=== PATIENT | female | born 1970 | race African-American/Black ===

== ENCOUNTER 2016-12-26 07:10 | Emergency (ER) ==
[2016-12-26 08:07] LABS: URINE MICRO REVIEW NEEDED? NO; URINE SOURCE VOIDED
[2016-12-26 08:13] LABS: BILIRUBIN URINE NEGATIVE (NEGATIVE); BLOOD URINE SMALL (NEGATIVE); COLOR YELLOW; GLUCOSE URINE NEGATIVE (NEGATIVE); LEUKOCYTES URINE NEGATIVE (NEGATIVE); NITRITE URINE NEGATIVE (NEGATIVE); PH URINE 5.5; PROTEIN URINE NEGATIVE (NEGATIVE); TURBIDITY URINE CLEAR (CLEAR); UROBILINOGEN URINE NORMAL (NORMAL)
[2016-12-26 08:15] LABS: UR EPITHELIAL CELLS <10 /HPF (<10); URINE BACTERIA NEGATIVE /HPF; URINE RBC <10 /HPF (<10); URINE WBC <10 /HPF (<10)
--- NOTE | 2016-12-26 08:23 | PROVIDER DOCUMENTATION ---
HPI-Female /OB/Breast - General Chief Complaint: UTI Symptoms Stated Complaint: poss uti sx Time Seen by Provider: 12/26/16 07:37 Source: reports: patient Allergies/Adverse Reactions: Patient Allergies Allergy/AdvReac Type Severity Reaction Status Date / Time shellfish derived Allergy ANAPHYLAXIS Verified 11/20/16 05:01 Home Medications: Home Medication List Medication Instructions Recorded Confirmed Last Taken Type Budesonide/Formoterol Inhaler 2 puff INH PRN PRN 02/18/16 11/01/16 02/18/16 History [Symbicort 160/4.5 Microgm Inhaler] Pantoprazole Sodium [Protonix] 20 mg PO DAILY 07/31/16 11/01/16 Unknown History Albuterol Sulfate [Proventil Hfa] 6.7 gm IH 4XDAY PRN PRN #1 08/01/16 11/01/16 Unknown Rx [email or web address] Hydrochlorothiazide [Microzide] 12.5 mg PO DAILY #30 capsule 08/01/16 11/01/16 Unknown Rx Pantoprazole Sodium [Protonix] 40 mg PO DAILY #30 tablet.dr 11/01/16 Unknown Rx Nitrofurantoin Monohyd/M-Cryst 100 mg PO BID #20 capsule 11/20/16 Unknown Rx [Macrobid 100 mg Capsule] Ciprofloxacin HCl [Cipro] 500 mg PO BID #14 tablet 12/26/16 Unknown Rx Tramadol [Ultram] 50 mg PO TID #30 tablet 12/26/16 Unknown Rx - History of Present Illness-Female /OB Nature of Presenting Problem: FELLING BLADER FULL ASSOC W/DYSURIA .PT JUST FINISH I WEEK PO CLINDAMYCIN ...NO OTHER RELATED SXS Does patient report she is ?: No Location of complaint: reports: suprapubic Radiation: reports: suprapubic Quality of Pain: reports: cramping, pressure Severity in ED: reports: mild Onset/Duration: reports: 3 days ago Timing: reports: improving, intermittent Vaginal Symptoms: denies: abnormal bleeding, discharge, foul odor, itching, passing clots/tissue Vaginal Bleeding Amount: None Sexual intercourse history: reports: Greater Than 2 Months Ago Contraception: reports: none Associated Symptoms: reports: constipation. denies: diarrhea, loss of appetite , nausea, vomiting Similar Symptoms Previously?: Yes (PT W/HX OF IBS) Recently seen or treated by another doctor?: Yes Review of Systems - Adult - REVIEW OF SYSTEMS - ADULT Constitutional: reports: see HPI All Other Systems: Reviewed and Negative Past History - Adult - PAST MEDICAL HISTORY-ADULT Review of Records: reports: Old Records Reviewed, Nursing Assessment Review, Medications Reviewed, Social history reviewed & non-contributory. Major Childhood Illnesses: reports: denies history Cardiovascular: reports: denies history Respiratory: reports: asthma, COPD Gastrointestinal: reports: GERD, IBS Obstetrical/Gynecological: reports: denies history Genitourinary: reports: denies history Musculoskeletal: reports: denies history Neurological: reports: denies history Psychiatric: reports: anxiety Endocrine/Immune: reports: denies history Other Conditions: reports: denies history - PRIOR SURGERIES/PROCEDURES Surgical/Procedure History: reports: hysterectomy, - PRIOR HOSPITALIZATIONS Prior Hospitalizations: reports: none - IMMUNIZATION STATUS Childhood Immunizations: See Nurse Assessment Flu Vaccine: See Nurse Assessment - FAMILY HISTORY Family History: reviewed, not pertinent - SOCIAL HISTORY Smoking: less than 1 pack/day Provider spent 3-5 mins advising pt. on dangers of tobacco.: Discussed manners to quit use, and f/u contacts for add'l counseling. Alcohol Use Frequency: once a week Living Situation: family Physical Exam-General - PHYSICAL EXAM-ADULT Initial Vital Signs Reviewed: Yes - CONSTITUTIONAL General Appearance: appears well, alert, no apparent distress, obese - EYES Eyes: PERRL/EOMI, pink conjunctivae - HEAD, EARS, NOSE, MOUTH & THROAT HENMT: normocephalic/atraumatic, moist mucous membranes, normal ENT inspection, TMs normal - NECK Neck: non-tender, full range of motion, supple, normal inspection - RESPIRATORY Respiratory: chest non-tender, lungs clear, normal breath sounds, no pleuratic chest pain, no respiratory distress - CARDIOVASCULAR Cardiovascular: normal peripheral pulses, regular rate, rhythm, no edema - GASTROINTESTINAL (ABDOMEN) Abdominal Exam: normal bowel sounds, soft, no organomegaly, no pulsatile mass, tenderness (SUPRAPUBIC) - LYMPHATIC Lymphatic: no adenopathy, axilla node tender - MUSCULOSKELETAL Back Exam: normal inspection, no CVA tenderness, no vertebral tenderness Extremity: normal range of motion, non-tender, normal gait - SKIN Integumentary: normal color, normal turgor, warm/dry - NEUROLOGIC Neurologic: supervisor electrolytic tinning II-XII nml as tested, grossly normal, no motor/sensory deficits - PSYCHIATRIC Psych/Mental Status: normal mood/affect, oriented x 3 Departure - Departure Time of Disposition Order: 08:23 DIAGNOSIS: Suprapubic abdominal pain, UTI (urinary tract infection) Disposition: HOME 01 Certified Medical Emergency: Urgent Condition: Stable Prescriptions: Ciprofloxacin HCl [Cipro] 500 mg PO BID #14 tablet Tramadol [Ultram] 50 mg PO TID #30 tablet Referrals: None,PCP [Primary Care Provider] - Ish Bond MD [STAFF PHYSICIAN] -
[2016-12-26 08:51] VITALS: BP 122/74
== END 2016-12-26 08:51 | disposition home or self-care (01) ==
LOC: ED 07:10
DX: N39.0 Urinary tract infection, site not specified (principal); R10.9 Unspecified abdominal pain; R30.0 Dysuria; K59.00 Constipation, unspecified; R10.819 Abdominal tenderness, unspecified site; J45.909 Unspecified asthma, uncomplicated; J44.9 Chronic obstructive pulmonary disease, unspecified; K21.9 Gastro-esophageal reflux disease without esophagitis; F17.210 Nicotine dependence, cigarettes, uncomplicated; E66.9 Obesity, unspecified; Z79.899 Other long term (current) drug therapy; Z71.6 Tobacco abuse counseling
CPT/HCPCS: 81001

== ENCOUNTER 2016-12-27 01:50 | Emergency (ER) ==
[2016-12-27] MEDS ORDERED: ATIVAN IM ONE (02:19)
--- NOTE | 2016-12-27 02:19 | PROVIDER DOCUMENTATION ---
HPI-General Adult - General Source: patient - History of Present Illness -Gen Adult Nature of Presenting Problems: 46 year old F presents to the ED with a cc of an anxiety attack. PT states that she woke up from her sleep with a headache, dizziness, and chills. PT states that it improved after going outside and laying down on the porch. PT states that she was seen last night for the same thing. Location of Pain/Injury: reports: head Pain Radiation: reports: no radiation Quality of Pain: reports: none Severity: reports: mild Onset/Duration: reports: last night Timing: reports: still present Context/Activities at Onset: reports: none Modifying Factors: improves with: nothing Associated Symptoms: reports: anxiety, dizziness, headaches Similar Symptoms Previously?: Yes Recently seen or treated by another doctor?: Yes <Sarita Odonnell - Last Filed: 12/27/16 02:14> <Arben Jorgensen - Last Filed: 12/27/16 03:11> - General Chief Complaint: General Adult Stated Complaint: RECHECK Time Seen by Provider: 12/27/16 02:15 Allergies/Adverse Reactions: Patient Allergies Allergy/AdvReac Type Severity Reaction Status Date / Time shellfish derived Allergy ANAPHYLAXIS Verified 12/27/16 02:13 Home Medications: Home Medication List Medication Instructions Recorded Confirmed Last Taken Type Albuterol Sulfate [Proventil Hfa] 6.7 gm IH 4XDAY PRN PRN #1 08/01/16 12/27/16 12/25/16 Rx [email or web address] Pantoprazole Sodium [Protonix] 40 mg PO DAILY #30 tablet. 11/01/16 12/27/16 08:00 Rx Ciprofloxacin HCl [Cipro] 500 mg PO BID #14 tablet 12/26/16 12/27/16 12/26/16 20 :00 Rx Hydrochlorothiazide [Microzide] 25 mg PO DAILY 12/26/16 12/27/16 12/26/16 08:00 History Review of Systems - Adult - REVIEW OF SYSTEMS - ADULT Constitutional: denies: chills, fever Eyes: reports: no symptoms reported Ears, Nose, Mouth & Throat: denies: ear pain, nose pain Cardiovascular: denies: chest pain, palpitations Respiratory: denies: cough, shortness of breath Gastrointestinal: denies: nausea, vomiting Genitourinary: reports: no symptoms reported Musculoskeletal: reports: no symptoms reported Integumentary: reports: no symptoms reported Neurological: reports: dizziness/vertigo, headache/migraines Psychiatric: reports: anxiety. denies: panic attacks Endocrine: reports: no symptoms reported Hematologic/Lymphatic: reports: no symptoms reported Allergic/Immunologic: reports: no symptoms reported All Other Systems: Reviewed and Negative <Sarita Odonnell - Last Filed: 12/27/16 02:14> Past History - Adult - PAST MEDICAL HISTORY-ADULT Review of Records: reports: Nursing Assessment Review, Medications Reviewed Major Childhood Illnesses: reports: denies history Cardiovascular: reports: denies history Respiratory: reports: asthma, COPD Gastrointestinal: reports: GERD, IBS Obstetrical/Gynecological: reports: denies history Genitourinary: reports: denies history Musculoskeletal: reports: denies history Neurological: reports: denies history Psychiatric: reports: anxiety Endocrine/Immune: reports: denies history Other Conditions: reports: denies history - PRIOR SURGERIES/PROCEDURES Surgical/Procedure History: reports: hysterectomy, - PRIOR HOSPITALIZATIONS Prior Hospitalizations: reports: none - IMMUNIZATION STATUS Childhood Immunizations: See Nurse Assessment Flu Vaccine: See Nurse Assessment - FAMILY HISTORY Family History: reviewed, not pertinent - SOCIAL HISTORY Smoking: non-smoker Substance Use: none/never Alcohol Use Frequency: occasionally <Sarita Odonnell - Last Filed: 12/27/16 02:14> Physical Exam-General - PHYSICAL EXAM-ADULT Initial Vital Signs Reviewed: Yes - CONSTITUTIONAL General Appearance: alert, anxious - RESPIRATORY Respiratory: chest non-tender, lungs clear, normal breath sounds - CARDIOVASCULAR Cardiovascular: normal peripheral pulses, regular rate, rhythm, no edema - GASTROINTESTINAL (ABDOMEN) Abdominal Exam: non tender, soft - MUSCULOSKELETAL Extremity: normal inspection - SKIN Integumentary: normal color, normal turgor, warm/dry - PSYCHIATRIC Psych/Mental Status: oriented x 3, anxious <Sarita Odonnell - Last Filed: 12/27/16 02:14> Progress - PLAN OF CARE/RESULTS Progress/Plan/Lab Results: Orders Category Date Time Status Lorazepam [Ativan] Med 12/27/16 02:19 Discontinued 2 mg IM NOW ONE Vital Signs Temp Pulse Resp BP Pulse Ox 12/27/16 01:53 97.7 F 89 18 148/99 100 shellfish derived Allergy (Verified 12/27/16 02:13) ANAPHYLAXIS Albuterol Sulfate [Proventil Hfa] 6.7 gm IH 4XDAY PRN PRN #1 [email or web address] Pantoprazole Sodium [Protonix] 40 mg PO DAILY #30 tablet. 11/01/16 Ciprofloxacin HCl [Cipro] 500 mg PO BID #14 tablet 12/26/16 Hydrochlorothiazide [Microzide] 25 mg PO DAILY 12/26/16 - REASSESSMENT Reassessment #1 Time Reassessed: 03:10 (pt reports that all feeliings of anxiety and headache are gone) Status: improving <Arben Jorgensen - Last Filed: 12/27/16 03:11> Departure <Sarita Odonnell - Last Filed: 12/27/16 02:14> - Departure Time of Disposition Order: 03:10 Certified Medical Emergency: Emergent <Arben Jorgensen - Last Filed: 12/27/16 03:11> - Departure DIAGNOSIS: Anxiety attack Disposition: HOME 01 Condition: Good Additional Instructions: ED Follow Up Instructions: You have been treated by a care provider in the Emergency Department. These instructions are being provided to you so you can have an understanding of how to care for yourself upon discharge. Upon discharge from the Emergency Department, you are responsible for making arrangements for follow-up care by a physician of your choice. Take all prescribed medications as directed. Return to the Emergency Department immediately for any new or worsening symptoms. You may call the Physician Referral phone number at [phone] to obtain a list of Physicians who are taking new patients. Attestation - Scribe Verification/Attestation Scribe:: Sarita Odonnell Acting as Scribe for:: Arben Jorgensen Scribe documention review:: This chart was documented by a scribe and accurately reflects the service the provider performed and the decisions made by the provider. <Sarita Odonnell - Last Filed: 12/27/16 02:14> Physician Attestation
[2016-12-27 03:33] VITALS: BP 147/80
== END 2016-12-27 03:33 | disposition home or self-care (01) ==
LOC: ED 01:50
DX: F41.9 Anxiety disorder, unspecified (principal); R51 Headache; R42 Dizziness and giddiness; R68.83 Chills (without fever); J45.909 Unspecified asthma, uncomplicated; J44.9 Chronic obstructive pulmonary disease, unspecified; K21.9 Gastro-esophageal reflux disease without esophagitis
CPT/HCPCS: J2060

== ENCOUNTER 2019-08-12 23:41 | Inpatient (IN) ==
[2019-08-13 00:18] LABS: URINE SOURCE CLEAN CATCH
[2019-08-13 00:23] LABS: BILIRUBIN URINE NEGATIVE (NEGATIVE); BLOOD URINE SMALL (NEGATIVE); COLOR YELLOW; GLUCOSE URINE NEGATIVE (NEGATIVE); KETONE URINE NEGATIVE (NEGATIVE); LEUKOCYTES URINE NEGATIVE (NEGATIVE); NITRITE URINE NEGATIVE (NEGATIVE); PROTEIN URINE TRACE mg/dL (NEGATIVE); TURBIDITY URINE CLEAR (CLEAR); UR EPITHELIAL CELLS <10 /HPF (<10); URINE BACTERIA NEGATIVE /HPF; URINE WBC <10 /HPF (<10); UROBILINOGEN URINE NORMAL (NORMAL)
[2019-08-13 00:23] LABS: BASO# 0.01 X1000 (0.0-0.2); BASO% 0.2 % (0.0-0.8); EOS# 0.04 X1000 (0.0-0.7); EOS% 0.6 % (0.0-10.0); HEMATOCRIT 39.3 % (37.0-47.0); HEMOGLOBIN 12.6 g/dL (12.0-16.0); LYMPH# 1.42 X1000 (1.2-3.4); LYMPH% 21.4 % (20.5-51.1); MCH 27.6 PG (27-31); MCHC 32.1 g/dL (33-37); MONO# 0.42 X1000 (0.11-0.59); MONO% 6.3 % (1.7-9.3); MPV 10.6 FL (7.4-10.4); NEUT# 4.76 X1000 (1.4-6.5); NEUT% 71.5 % (42.2-75.2); PLT 360 X1000 (130-400); RBC 4.57 XMIL (4.2-5.4); RDW 14.1 % (11.5-14.5); WBC 6.65 X1000 (4.8-10.8)
[2019-08-13 00:48] LABS: AGAP 9; ALB/GLOB RATIO 1.2; ALBUMIN 4.2 g/dL (3.5-5.0); ALKALINE PHOSPHATASE 69 U/L (32-104); AMYLASE 58 U/L (20-200); BUN 10 mg/dL (8-22); CALCIUM 8.9 mg/dL (8.8-10.2); CHLORIDE 100 mmol/L (98-107); COSMO 275; ESTIMATED GFR > 60; GLUCOSE 102 mg/dL (70-104); GOT 16 U/L (10-30); GPT 16 U/L (10-36); LIPASE 23 U/L (13-60); POTASSIUM 3.7 mmol/L (3.5-5.1); SODIUM 138 mmol/L (136-145); TCO2 29 mmol/L (25-35); TOTAL BILIRUBIN 0.42 mg/dL (0.20-1.00); TOTAL PROTEIN 7.7 g/dL (6.3-8.3)
[2019-08-13] MEDS ORDERED: PROTONIX PO ONE (02:27)
[2019-08-13] MEDS ORDERED: TORADOL IV ONE (02:27)
--- NOTE | 2019-08-13 02:53 | PROVIDER DOCUMENTATION ---
HPI-General Adult - General Chief Complaint: Abdominal Pain Stated Complaint: ABD PAIN/BLLOD IN STOOL Time Seen by Provider: 08/13/19 02:03 Source: patient Allergies/Adverse Reactions: Patient Allergies Allergy/AdvReac Type Severity Reaction Status Date / Time shellfish derived Allergy Severe ANAPHYLAXIS Verified 08/13/19 03:18 Home Medications: Home Medication List Medication Instructions Recorded Confirmed Last Taken Type Hydrochlorothiazide [Microzide] 25 mg PO DAILY 12/26/16 07/06/19 07/05/19 History Pantoprazole Sodium [Protonix] 40 mg PO DAILY 12/29/17 07/06/19 07/05/19 History Albuterol Sulfate Inhaler 2 puff INH Q6H PRN 07/06/19 07/06/19 Unknown History [Ventolin Hfa] Celecoxib [Celebrex] 200 mg PO DAILY 07/06/19 07/06/19 07/05/19 History Cyclobenzaprine HCl 10 mg PO DAILY 07/06/19 07/06/19 07/05/19 History Fexofenadine [Marianela] 108 mg PO DAILY 07/06/19 07/06/19 07/05/19 History Methocarbamol [Robaxin] 500 mg PO Q6H PRN PRN #20 tab 07/06/19 Unknown Rx Mometasone/Formoterol [Dulera 100 2 puff INH BID 07/06/19 07/06/19 07/05/19 History Mcg/5 Mcg Inhaler] Naproxen [Naprosyn] 500 mg PO BID #20 tab 07/06/19 Unknown Rx Naproxen 500 mg PO BID PRN PRN #30 tab 07/16/19 Unknown Rx - History of Present Illness -Gen Adult Nature of Presenting Problems: 48 yo female reports right sided abdominal pain intermittent since this evening , then blood in stool about 10pm and came to er. currently been taking diflucan for yeast vaginitis (via urgent care clinic) and developed nause, stoped diflucan. worried about prior hx of fatty liver and the right abd pain and the diflucan usage. CT for right abd in Jul here/ Dr Bueno; nl study at that time. past hysterectomy, still has GB and appendix. recent w/u per urolgy for persistent micaro hematuria. Review of Systems - Adult - REVIEW OF SYSTEMS - ADULT Constitutional: reports: no symptoms reported. denies: chills, fever, fatique Eyes: reports: no symptoms reported Ears, Nose, Mouth & Throat: reports: no symptoms reported Cardiovascular: reports: no symptoms reported Respiratory: reports: no symptoms reported Gastrointestinal: reports: no symptoms reported, abdominal pain (5/10 now), diarrhea (small. hx IBS/constipation an fatty liver dz.), rectal bleeding (shows me digital photo with samll bright blood mixed in stool). denies: hematemesis Genitourinary: reports: no symptoms reported Musculoskeletal: reports: no symptoms reported Integumentary: reports: no symptoms reported Neurological: reports: no symptoms reported Psychiatric: reports: no symptoms reported Endocrine: reports: no symptoms reported Hematologic/Lymphatic: reports: no symptoms reported Allergic/Immunologic: reports: no symptoms reported All Other Systems: Reviewed and Negative Past History - Adult - PAST MEDICAL HISTORY-ADULT Review of Records: reports: Old Records Reviewed, Nursing Assessment Review, Medications Reviewed, Social history reviewed & non-contributory. Major Childhood Illnesses: reports: denies history Cardiovascular: reports: HTN Respiratory: reports: asthma, COPD, sleep apnea Gastrointestinal: reports: GERD, IBS Obstetrical/Gynecological: reports: denies history Genitourinary: reports: denies history Musculoskeletal: reports: denies history Neurological: reports: denies history Psychiatric: reports: anxiety Endocrine/Immune: reports: denies history Other Conditions: reports: denies history - PRIOR SURGERIES/PROCEDURES Surgical/Procedure History: reports: hysterectomy, , orthopedic (extremity) - PRIOR HOSPITALIZATIONS Prior Hospitalizations: reports: none - IMMUNIZATION STATUS Childhood Immunizations: See Nurse Assessment Flu Vaccine: See Nurse Assessment - FAMILY HISTORY Family History: reviewed, not pertinent Physical Exam-General - PHYSICAL EXAM-ADULT Initial Vital Signs Reviewed: Yes - CONSTITUTIONAL General Appearance: appears well, alert, no apparent distress - EYES Eyes: PERRL/EOMI, pink conjunctivae - HEAD, EARS, NOSE, MOUTH & THROAT HENMT: normocephalic/atraumatic, moist mucous membranes - NECK Neck: non-tender, full range of motion, supple - RESPIRATORY Respiratory: chest non-tender, lungs clear, normal breath sounds - CARDIOVASCULAR Cardiovascular: regular rate, rhythm, no edema, no JVD, no murmur - GASTROINTESTINAL (ABDOMEN) Abdominal Exam: normal bowel sounds, soft, tenderness (moderate tenderness entire right abd w/o guarding or mass.). negative: abnormal bowel sounds - MUSCULOSKELETAL Extremity: normal range of motion, non-tender, no pedal edema, no calf ten derness, normal capillary refill - SKIN Integumentary: normal color, normal turgor, warm/dry - NEUROLOGIC Neurologic: water tender II-XII nml as tested, grossly normal - PSYCHIATRIC Psych/Mental Status: normal mood/affect, normal thought content, normal thought process, oriented x 3 Progress - PLAN OF CARE/RESULTS Progress/Plan/Lab Results: Vital Signs - 8 hr 08/12/19 23:52 Temperature 99.3 F Pulse Rate 86 Respiratory Rate 16 Blood Pressure 143/85 O2 Sat by Pulse Oximetry 98 Laboratory Results - last 24 hr 08/13/19 08/13/19 08/13/19 00:05 00:05 00:10 WBC 6.65 RBC 4.57 Hgb 12.6 Hct 39.3 MCV 86.0 MCH 27.6 MCHC 32.1 L RDW Std Deviation 14.1 Plt Count 360 MPV 10.6 H Immature Gran % (Auto) 0.0 Neut % (Auto) 71.5 Lymph % (Auto) 21.4 [place] % (Auto) 6.3 Eos % (Auto) 0.6 Baso % (Auto) 0.2 Immature Gran # (Auto) 0.00 Neut # (Auto) 4.76 Lymph # (Auto) 1.42 [place] # (Auto) 0.42 Eos # (Auto) 0.04 Baso # (Auto) 0.01 Sodium 138 Potassium 3.7 Chloride 100 Carbon Dioxide 29 Anion Gap 9 BUN 10 Creatinine 1.0 H Estimated GFR/1.73 m2 > 60 BUN/Creatinine Ratio 10 Glucose 102 Calculated Osmolality 275 Calcium 8.9 Total Bilirubin 0.42 AST 16 ALT 16 Alkaline Phosphatase 69 Total Protein 7.7 Albumin 4.2 Globulin 3.5 Albumin/Globulin Ratio 1.2 Amylase 58 Lipase 23 Urine Source CLEAN CATCH Urine Color YELLOW Urine Turbidity CLEAR Urine pH 7.0 Ur Specific Reliance 1.020 Urine Protein TRACE A Ur Glucose (Stick) NEGATIVE Ur Ketones (Stick) NEGATIVE Urine Blood SMALL A Urine Nitrite NEGATIVE Urine Bilirubin NEGATIVE Urobilinogen Dipstick NORMAL Urine Leukocytes NEGATIVE Urine WBC (Auto) <10 Urine RBC (Auto) 10-20 A U Epithel Cells (Auto) <10 Urine Bacteria (Auto) NEGATIVE Orders Category Date Time Status Saline Loc DIRECTED Care 11/06/19 00:07 Active NPO Diet 08/13/19 00:07 Active ABDOMEN FLAT/UPRIGHT [RAD] Stat Exams 08/13/19 02:26 Taken AMYLASE [CHEM] Stat Lab 08/13/19 00:05 Completed CBC WITH ELECTRONIC DIFF [HEME] Stat Lab 08/13/19 00:05 Completed COMPREHENSIVE METABOLIC PANEL [CHEM] Stat Lab 08/13/19 00:05 Completed LIPASE [CHEM] Stat Lab 08/13/19 00:05 Completed URINALYSIS W/POSS RFLX CULT [URINALYSIS] Stat Lab 08/13/19 00:10 Completed Ketorolac [Toradol] Med 08/13/19 02:27 Discontinued 15 mg IV NOW ONE Pantoprazole [Protonix] Med 08/13/19 02:27 Discontinued 40 mg PO NOW ONE Result Diagrams: 08/13/19 00:05 08/13/19 00:05 - REASSESSMENT Reassessment #1 Time Reassessed: 02:55 Status: unchanged (not liver enzymes not elevated. , mild anemia and no leukocytosis, mild hematuria. Cr 0.1) - XRAY 1 XRAY Study: Abdomen (MUCH STOOL , NO FREE AIR) - CONSULTS/PCP/HOSPITALIST Notification #1 *Consult/PCP/Hospitalist*: DR SNELL Time Discussed: 03:18 Consult Disposition: Admit Departure - Departure Date of Disposition Decision: 08/13/19 Time of Disposition Decision: 03:18 DIAGNOSIS: GI bleeding Qualifiers: GI bleed type/associated pathology: unspecified gastrointestinal hemorrhage t ype Qualified Code(s): K92.2 - Gastrointestinal hemorrhage, unspecified Abdominal pain Qualifiers: Abdominal location: right upper quadrant Qualified Code(s): R10.11 - Right upper quadrant pain Disposition: ADMITTED INPATIENT 09 Certified Medical Emergency: Emergent Condition: Stable Referrals and Follow-Ups: Diego Ruiz MD [Primary Care Provider] - - Critical Care Note This patient required my direct & personal management of CC.: No Attestation - Physician/ HARRISON Attestation The physician spent face to face time with patient:: Yes Advanced Practice Provider documentation review:: Supervising physician onsite and consulted in the evaluation and care of this patient. The physician did have a face to face encounter with the patient.
[2019-08-13] MEDS ORDERED: ROCEPHIN 1 GM in NS 50 ML IV ONE (03:12)
--- NOTE | 2019-08-13 04:23 | HISTORY AND PHYSICAL ---
PRIMARY CARE PHYSICIAN: Dr. Ynes Ruiz. CHIEF COMPLAINT: Blood in stools x1 day. HISTORY OF PRESENTING ILLNESS: A 48-year-old female with a history of asthma, COPD, IBS, hypertension who presented to the emergency department with 1-day history of having blood in stools. The patient states that she has several bowel movement where she noticed that the stool had blood in it. She was evaluated in the emergency department and due to presenting symptoms, it was thought that she would need admission for further management. At the time of my examination, patient denied any headache, fever, chills, chest pain, shortness of breath or any weight changes, but complained of blood in her stools. PAST MEDICAL HISTORY: Includes asthma, COPD, IBS, hypertension. PAST SURGICAL HISTORY: Hysterectomy. ALLERGIES: Lortab. CURRENT MEDICATIONS: 1. Albuterol inhaler 2 puffs inhalation q.6 hours. 2. Celebrex 200 mg p.o. daily. 3. Flexeril 10 mg p.o. daily. 4. Marianela 180 mg p.o. daily. 5. Gabapentin 400 mg p.o. t.i.d. 6. Hydrochlorothiazide 25 mg p.o. daily. 7. Pantoprazole 40 mg p.o. daily. SOCIAL HISTORY: No history of smoking. Admits to social alcohol use. Denies any illicit drug use. FAMILY HISTORY: No history of coronary disease. REVIEW OF SYSTEMS: Fourteen-point review of system as listed in HPI. Other systems negative. PHYSICAL EXAMINATION: GENERAL: Cooperative, friendly female, she is resting comfortably now. VITAL SIGNS: Temperature 99.3 degrees, pulse 86, respirations 16, blood pressure 143/85. HEENT: Atraumatic, normocephalic. Extraocular movements intact. PERRLA. NECK: No masses. CHEST: Clear to auscultation. CARDIOVASCULAR: Regular rate and rhythm. ABDOMEN: Soft, obese, positive bowel sounds. EXTREMITIES: Trace edema. NEUROLOGIC: She is awake, alert, oriented x3. GENITOURINARY: No bladder distention. SKIN: Warm. LABORATORIES AND STUDIES: Sodium 138, potassium 3.7, chloride 100, CO2 is 29, BUN is 10, creatinine is 1.0. Glucose 102. WBC 6.65, hemoglobin 12.6, hematocrit 39.3, platelets 360,000. ASSESSMENT: A 48-year-old female with a history of asthma, chronic obstructive pulmonary disease, irritable bowel syndrome and hypertension, had presented to emergency department with 1-day history of having blood in her stools. She was evaluated in the emergency department. Due to presenting symptoms, she will need admission for further management. 1. Suspected lower gastrointestinal bleed. 2. Chronic obstructive pulmonary disease. 3. Hypertension. PLAN: 1. We will admit patient to medical floor with telemetry. 2. We will keep patient NPO and consult Gastroenterology. 3. We will continue with DuoNebs p.r.n. 4. Monitor blood pressure. Resume antihypertensive agent. 5. Put patient on DVT prophylaxis with SCDs. 6. We will continue to follow and reassess. Make further recommendation based on patient's clinical course. cc: Fred Otoole MD
--- NOTE | 2019-08-13 07:44 | Diag Imaging Result Doc PS360 ---
EXAM: ABDOMEN FLAT/UPRIGHT 08/13/2019 HISTORY: right abd pain and tender TECHNIQUE: Flat and upright abdomen COMMENT: There is gas and stool in the colon. The small bowel is not distended. There is no evidence organomegaly or mass. IMPRESSION: Nonspecific abdomen. Electronically signed by Rogelio Bautista 08/13/2019 7:41 AM
[2019-08-13] MEDS ORDERED: NS 1,000 ML IV SCH (07:56)
[2019-08-13] MEDS ORDERED: DUONEB (A & A) INH PRN (07:56)
[2019-08-13] MEDS ORDERED: ZOFRAN IV PRN (07:56)
[2019-08-13 14:28] VITALS: BP 110/62
--- NOTE | 2019-08-13 19:16 | GASTROENTEROLOGY CONSULTATION ---
DATE: 08/13/2019 REASON FOR CONSULT: GI bleed. HISTORY OF PRESENT ILLNESS: Ms. Olguin is a 48-year-old female with the history of asthma, COPD, irritable bowel syndrome, and hypertension. She presented to the ER last night complaining of blood in her stool. Three weeks back she was diagnosed with STD gonorrhea and yeast infection. She was on antibiotics and Diflucan. She took Diflucan on Sunday, and the second dose she took on Sunday morning. She said after that, she started feeling sick in the evening with abdominal pain in the right upper quadrant and epigastric area radiating to the back. She had symptoms of dizziness, weakness, fatigue, fever, chills, but denied any shortness of breath. She sees Dr. Rojo and her last EGD was 2 years back, and has history of H pylori. PAST MEDICAL HISTORY: 1. Asthma. 2. COPD. 3. Irritable bowel syndrome. 4. Fatty liver disease. 5. Hypertension. ALLERGIES: Shellfish, Lortab, Diflucan, lactose intolerance. PAST SURGICAL HISTORY: 1. 3 C sections. 2. Hysterectomy. 3. Shoulder scope. 4. Tube in the right ear. SOCIAL HISTORY: She is . She has 4 kids. She has occasional alcohol, a glass of wine. Denies smoking. FAMILY HISTORY: No significant GI malignancies. REVIEW OF SYSTEMS: As per HPI. Otherwise, 12 point review of systems is negative. PHYSICAL EXAMINATION: Vital Signs: Temperature 97.8 degrees, pulse 86, respirations 16, blood pressure 170/50, oxygen saturation 99% on room air. The patient's weight is 279 pounds. BMI is 43.9 kg/m2. General: The patient is morbidly obese. She is alert, oriented x3, a good historian, and in no acute distress. HEENT: Pale conjunctivae. No icterus. PERRL. Neck: Supple. Lungs: Clear to auscultation in the anterior and posterior cardoza. Cardiovascular: Regular rate and rhythm. No murmurs, rubs, or gallops heard on auscultation. Abdomen: Distended, obese, tender in the epigastric area and right quadrant. Active bowel sounds heard in all 4 quadrants. Extremities: No clubbing, no cyanosis, no edema. Pedal pulses 2+ present bilaterally. Neurologic: She is alert, oriented x3. Nonfocal. Cranial nerves 2 through 12 grossly intact. LABORATORY DATA: WBC 6.65, RBC 4.57, hemoglobin 12.6, hematocrit 39.3, platelet count 360,000. Sodium 138, potassium 3.7, chloride 107, carbon dioxide 20, anion gap 9, BUN 10, creatinine 1.0, glucose 102, calcium 8.9, total bilirubin 0.4, AST 16, ALT 16, alkaline phos 69, amylase 58, lipase 23. Urinalysis showed trace of protein, small amount of blood. Abdomen x-ray revealed nonspecific abdomen. IMPRESSION: 1. Gastrointestinal bleed. 2. Chronic obstructive pulmonary disease. 3. Asthma. 4. Hypertension. 5. History of sexually transmitted disease. 6. Yeast infection. PLAN: The patient's hemoglobin is 12.6 and hematocrit is 39.3. She is hemodynamically stable. She is receiving intravenous fluids 100 mL/h. We will continue to monitor her CBCs, BMPs, and follow the plan of care per primary care physician. From GI standpoint she can be discharged. This plan was discussed with Dr. Sy. Thank you for your consult and please call us for any further questions or concerns. Dictated by EZEQUIEL Flanagan for Sunny Sy MD [facility]
--- NOTE | 2019-08-14 12:18 | DISCHARGE SUMMARY ---
ADMISSION DATE: 08/13/2019 DISCHARGE DATE: 08/13/2019 DISPOSITION: Home. FOLLOWUP: Dr. Sy. CONSULTATIONS DURING THIS ADMISSION: GI was consulted. The patient was seen by Dr. Sy. INVASIVE PROCEDURES DONE DURING THIS ADMISSION: None. IMAGING STUDIES OF SIGNIFICANCE: A KUB showed nonspecific abdomen. ADMISSION DIAGNOSES: 1. Suspected lower gastrointestinal bleed. 2. Chronic obstructive pulmonary disease. 3. Hypertension. DISCHARGE DIAGNOSES: 1. Mild rectal bleed with no changes on hemoglobin and hematocrit. The patient did not have any more bleeding during the hospital course, was evaluated by Gastroenterology, recommended to be discharged and follow up as an outpatient. 2. Suspected hemorrhoids. 3. Chronic obstructive pulmonary disease, currently not in exacerbation. 4. Hypertension. 5. Morbid obesity with body mass index of 43.9. 6. Fatty liver disease. The patient has been notified and advised to follow up with Gastroenterology. Also advised on weight management and diet. DISCHARGE MEDICATIONS: 1. Hydrochlorothiazide 25 mg p.o. daily. 2. Pantoprazole 40 mg p.o. daily. 3. Ventolin inhaler. 4. Celebrex 200 mg p.o. daily. 5. Dulera inhaler. 6. Marianela 180 p.o. daily. 7. Gabapentin 400 three times per day. PRESENTING COMPLAINT: Blood in stool, 1 day. HISTORY OF PRESENTING COMPLAINT: Ms. Olguin is a 48-year-old female with history of asthma, COPD, IBS, hypertension, who presented to the emergency department because of blood in stool for 1 day. The patient presented to the emergency department, and because of the symptoms, she was admitted overnight for observation. HOSPITAL COURSE: Ms. Olguin did not have any more rectal bleed. She remained stable. Hemoglobin and hematocrit were 12.6 and 39.3. She was evaluated by GI. They did not think that she needed any investigations during the hospital course, especially because she did not have any more blood in the stool. Ms. Olguin was found to have some steatosis of the liver on the previous CT scan from July of this year, and she has been advised to follow up with Dr. Sy. She is currently in clinically stable condition. We think she is okay to be discharged. All the discharge instructions have been discussed with her. She voiced understanding. TIME SPENT: Time spent for discharge was 38 minutes. cc: MD Sunny Carlton MD
== END 2019-08-13 15:04 | disposition home or self-care (01) | DRG 378 ==
LOC: ED 23:41 → 4N 08-13 05:09 → SUATTDRO 08-13 05:09
PROVIDERS: ATTEND Internal Medicine